=== PATIENT | female | born 1990 | race American Indian/Alaskan Native ===

== ENCOUNTER 2018-02-27 16:26 | Emergency (ER) | payer SELFPAY ==
--- NOTE | 2018-02-27 19:22 | Emergency Department Report ---
ED General Adult HPI - General Chief complaint: Anxiety Stated complaint: CHEST PAIN Time Seen by Provider: 02/27/18 19:07 Source: patient Mode of arrival: Ambulatory Limitations: No Limitations - History of Present Illness Initial comments: Patient 27-year-old [place] female history of asthma depression presents for asthma exacerbation exacerbating symptoms of anxiety patient denies chest pain as stated on triage is no shortness of breath no wheezing states itching nocturnal wheezing denies fevers chills clear postnasal drip that causes moved to [place] 2 weeks ago. There is no SI no SI, no cp no wheezing asthma is managed by Combivent however patient ran out 3 days ago when symptoms started patient ray symptoms at 07/05 at this time Onset/Timin -: days(s) Radiation: non-radiation Severity scale (0 -10): 2 Quality: other (itching cough noc wheezing ) Consistency: intermittent Improves with: rest, other (combivent inhaler ) Worsens with: other (environmental exposure ) Associated Symptoms: cough. denies: chest pain, diaphoresis, fever/chills, headaches, loss of appetite, malaise, nausea/vomiting, rash, seizure, syncope, weakness Treatments Prior to Arrival: none - Related Data Previous Rx's Medication Instructions Recorded Last Taken Type ALBUTEROL Inhaler (OR & NICU) 2 puff IH QID PRN #1 inhalation 02/27/18 Unknown Rx [Proair] Ipratropium/Albuter (Nf) 2 puff IH BID #1 inha 02/27/18 Unknown Rx [Combivent (Nf)] hydrOXYzine HCL [Atarax] 25 mg PO Q6HR PRN #12 tablet 02/27/18 Unknown Rx predniSONE [Deltasone] 40 mg PO QDAY 5 Days #10 tab 02/27/18 Unknown Rx Allergies Allergy/AdvReac Type Severity Reaction Status Date / Time No Known Allergies Allergy Unverified 02/27/18 16:43 ED Review of Systems ROS: Stated complaint: CHEST PAIN Other details as noted in HPI Constitutional: denies: chills, fever Eyes: denies: eye pain, eye discharge, vision change ENT: congestion Respiratory: cough, wheezing Cardiovascular: denies: chest pain, palpitations Endocrine: no symptoms reported Gastrointestinal: denies: abdominal pain, nausea, diarrhea Genitourinary: denies: urgency, dysuria, discharge Musculoskeletal: denies: back pain, joint swelling, arthralgia Skin: denies: rash, lesions Neurological: denies: headache, weakness, paresthesias Psychiatric: anxiety (anxiety related to medication refill & allergies ). denies: depression Hematological/Lymphatic: denies: easy bleeding, easy bruising ED Past Medical Hx - Past Medical History Previous Medical History?: No - Surgical History Past Surgical History?: No - Social History Smoking Status: Current Every Day Smoker Substance Use Type: Marijuana - Medications Home Medications: Home Medications Medication Instructions Recorded Confirmed Last Taken Type ALBUTEROL Inhaler (OR & NICU) 2 puff IH QID PRN #1 inhalation 02/27/18 Unknown Rx [Proair] Ipratropium/Albuter (Nf) 2 puff IH BID #1 inha 02/27/18 Unknown Rx [Combivent (Nf)] hydrOXYzine HCL [Atarax] 25 mg PO Q6HR PRN #12 tablet 02/27/18 Unknown Rx predniSONE [Deltasone] 40 mg PO QDAY 5 Days #10 tab 02/27/18 Unknown Rx ED Physical Exam - General Limitations: No Limitations General appearance: alert, in no apparent distress - Head Head exam: Present: atraumatic, normocephalic - Eye Eye exam: Present: normal appearance - ENT ENT exam: Present: normal orophraynx, mucous membranes moist, TM's normal bilaterally, normal external ear exam - Neck Neck exam: Present: normal inspection, full ROM. Absent: tenderness, lymphadenopathy, thyromegaly - Respiratory Respiratory exam: Present: normal lung sounds bilaterally. Absent: respiratory distress, wheezes, stridor, chest wall tenderness, prolonged expiratory - Cardiovascular Cardiovascular Exam: Present: regular rate, normal rhythm, normal heart sounds. Absent: systolic murmur, diastolic murmur, rubs, gallop - GI/Abdominal GI/Abdominal exam: Present: soft, normal bowel sounds. Absent: tenderness, bruit, hernia - Rectal Rectal exam: Present: deferred - Extremities Exam Extremities exam: Present: normal inspection - Back Exam Back exam: Present: normal inspection - Neurological Exam Neurological exam: Present: alert, oriented X3, CN II-XII intact, normal gait. Absent: reflexes normal - Psychiatric Psychiatric exam: Present: normal affect, normal mood - Skin Skin exam: Present: warm, dry, intact, normal color. Absent: rash ED Course Vital Signs 02/27/18 16:34 Pulse Rate 64 Respiratory 16 Rate Blood Pressure 127/82 O2 Sat by Pulse 98 Oximetry ED Medical Decision Making - Medical Decision Making this is a medication refill, mild anxiety related to relocation and running out of combivent inhaler there is no cp no si no hi, as pt admits need for medication refill only and referral to pcp. will do same exam normal no wheezing no sob no cp no distress no SI no HI will refill meds as requested pt will follow up with [facility] in 2-3 days. Critical care attestation.: If time is entered above; I have spent that time in minutes in the direct care of this critically ill patient, excluding procedure time. ED Disposition Clinical Impression: Medication refill, Multiple environmental allergies, Anxiety Disposition: TO HOME OR SELFCARE Is pt being admited?: No Does the pt Need Aspirin: No Condition: Good Instructions: Asthma (ED), Generalized Anxiety Disorder (ED), Ipratropium/ Albuterol (By breathing) Prescriptions: ALBUTEROL Inhaler (OR & NICU) [Proair] 2 puff IH QID PRN #1 inhalation PRN Reason: Shortness Of Breath hydrOXYzine HCL [Atarax] 25 mg PO Q6HR PRN #12 tablet PRN Reason: Anxiety Ipratropium/Albuter (Nf) [Combivent (Nf)] 2 puff IH BID #1 inha predniSONE [Deltasone] 40 mg PO QDAY 5 Days #10 tab Referrals: [facility] [Outside] - 3-5 Days Forms: Work/School Release Form(ED) Time of Disposition: 19:31
[2018-02-27 19:41] VITALS: BP 118/76
== END 2018-02-27 19:39 | disposition home or self-care (01) ==
LOC: ED 16:26
DX: F41.9 Anxiety disorder, unspecified (principal); J30.2 Other seasonal allergic rhinitis; F17.200 Nicotine dependence, unspecified, uncomplicated; F12.10 Cannabis abuse, uncomplicated; Z76.0 Encounter for issue of repeat prescription
CPT/HCPCS: 99282